=== PATIENT | female | born 1960 | race African-American/Black ===

== ENCOUNTER 2018-01-26 10:10 | Emergency (ER) | payer OTHER ==
[~2018-01-26] VITALS: Ht 175.3 cm; Wt 111.1 kg
--- NOTE | ~2018-01-26 | EKG ---
[address] [address] [place] [address] ELECTROCARDIOGRAM REPORT Name: CORTES SHANIQUA GALLEGOS Room [facility]: [id number] Admission: 01/26/18 Attend Phys: Discharge: 01/26/18 Date of : 60 Report #: [id number] THIS REPORT FOR: //name// [facility] ED Test Date: 2018-01-26 Test Time: 10:58:25 Pat Name: SHANIQUA GALLEGOS Department: Room: Gender: F Outreach Assistant: ERNESTINA : 1960 Requested By: David Ibarra Order Number: [id number] MD: Dougie Broussard Measurements Intervals [place] Rate: 67 P: 45 NM: 172 QRS: -3 QRSD: 100 T: QT: 409 QTc: 432 Interpretive Statements Sinus rhythm Nonspecific T abnrm, anterolateral leads Compared to ECG 10/30/2013 02:19:32 Sinus bradycardia no longer present T wave abnormality is more pronounced Electronically Signed On 01-26-2018 11:57:25 CDT by Dougie Broussard [email or web address] <ELECTRONICALLY SIGNED> By: Dougie Broussard MD, [facility] 01/26/18 1157 [id number] 1058 Dougie Broussard MD, [facility] /EPI
[~2018-01-26 10:10] MED LIST: ASPERDRINK81 MG PO; ASPIRIN EC81 M1 PO; CRESTOR10 MG PO; CRESTOR5 MG PO; MICROZIDE12.5 MG PO; PROZAC40 MG PO; TRAZODONE HCL100 MG PO
[2018-01-26 10:41] LABS: ABSOLUTE NEUTROPHILS 3.3 thou/uL (1.4-8.2); BASOPHILS 0.8 % (0.0-2.0); EOSINOPHILS 1.9 % (0.0-3.0); HEMATOCRIT 41.5 % (37.0-47.0); HEMOGLOBIN 13.9 gm/dL (12.0-15.0); LYMPHOCYTES 48.3 % (24.0-44.0); MCH 27.3 pg (26.0-34.0); MCHC 33.4 g/dL (28.0-37.0); MCV 81.8 fL (80.0-100.0); MONOCYTES 6.9 % (1.0-8.0); PLATELET COUNT 253 thou/uL (150-400); POLYS 42.1 % (36.0-66.0); RBC 5.07 mil/uL (4.20-5.00); RDW 14.2 % (10.5-14.5); WBC 7.9 thou/uL (4.0-11.0)
[2018-01-26 10:49] LABS: ANION GAP 7 mmol/L (7-16); BUN 14 mg/dL (7-18); CALCIUM 9.4 mg/dL (8.5-10.1); CHLORIDE 107 mmol/L (98-107); CO2 27 mmol/L (21-32); GLUCOSE 108 mg/dL (74-106); POTASSIUM 3.8 mmol/L (3.5-5.1); SODIUM 141 mmol/L (136-145)
[2018-01-26 10:56] LABS: TROPONIN-I <0.06 ng/mL (<0.06)
[2018-01-26] MEDS ORDERED: MEDROLDOSEPACK PO (11:22)
== END 2018-01-26 11:31 | disposition home or self-care (01) ==
LOC: ER 10:10
PROVIDERS: Physician Assistant
DX: R06.02 Shortness of breath (principal); L25.9 Unspecified contact dermatitis, unspecified cause; I10 Essential (primary) hypertension; E78.00 Pure hypercholesterolemia, unspecified; Z88.8 Allergy status to other drugs, medicaments and biological substances

== ENCOUNTER 2020-04-05 18:08 | Emergency (ER) | payer OTHER ==
[~2020-04-05] VITALS: Ht 175.3 cm; Wt 117.9 kg
[~2020-04-05 18:08] MED LIST changes: +MEDROLDOSEPACK PO
[2020-04-05] MEDS ORDERED: PROMETH-CODEIN 65 ML PO (20:38)
[2020-04-05] MEDS ORDERED: PROAIR HFA8.5 GM INH (20:38)
[2020-04-05 20:56] VITALS: BP 171/95
== END 2020-04-05 20:56 | disposition home or self-care (01) ==
LOC: ER 18:08
DX: R05 Cough (principal); Z20.828 Contact with and (suspected) exposure to other viral communicable diseases; M79.10 Myalgia, unspecified site; R50.9 Fever, unspecified; I10 Essential (primary) hypertension; E78.00 Pure hypercholesterolemia, unspecified; F31.9 Bipolar disorder, unspecified; F41.9 Anxiety disorder, unspecified; Z86.73 Personal history of transient ischemic attack (TIA), and cerebral infarction without residual deficits; Z79.899 Other long term (current) drug therapy; Z79.82 Long term (current) use of aspirin; Z88.7 Allergy status to serum and vaccine